=== PATIENT | male | born 1980 | race Caucasian/White ===

== ENCOUNTER 2020-06-20 09:55 | Emergency (ER) | payer MEDICAID ==
[~2020-06-20] VITALS: Ht 177.8 cm; Wt 97.7 kg
[~2020-06-20 09:55] MED LIST: DIAZ5TAB PO
== END 2020-06-20 11:10 | disposition home or self-care (01) ==
LOC: ER 09:56
DX: U07.1 COVID-19 (principal); J06.9 Acute upper respiratory infection, unspecified; R05 Cough; R50.9 Fever, unspecified; Z79.899 Other long term (current) drug therapy
CPT/HCPCS: 36415; 99282